=== PATIENT | female | born 1970 | race Caucasian/White ===

== ENCOUNTER 2018-06-29 10:29 | Emergency (ER) | payer OTHER, MEDICAID ==
[~2018-06-29] VITALS: Ht 160 cm; Wt 75.8 kg
[~2018-06-29 10:29] MED LIST: NORCO 5-325 TA1 EACH PO; VICODIN 5-5001 EACH
[2018-06-29] MEDS ORDERED: HYDROCODONE/IBUPROFE (10:39)
[2018-06-29 11:02] LABS: ABSOLUTE BASOPHILS 0.1 thou/uL (0.0-0.2); ABSOLUTE EOSINOPHILS 0.2 thou/uL (0.0-0.7); ABSOLUTE LYMPHOCYTES 1.8 thou/uL (0.8-5.3); ABSOLUTE MONOCYTES 0.4 thou/uL (0.0-1.2); ABSOLUTE NEUTROPHILS 2.9 thou/uL (1.6-8.1); BASOPHILS 1.1 %; EOSINOPHILS 3.4 %; LYMPHOCYTES 33.9 %; MCH 32.6 pg (26.0-34.0); MCHC 34.1 g/dL (28.0-37.0); MCV 95.6 fL (80.0-100.0); MONOCYTES 7.3 %; MPV 9.1 fl. (7.2-11.1); NUCLEATED RBCS 0 /100WBC; PLATELET COUNT* 179 thou/uL (150-400); POLYS 54.3 %; RBC 4.29 mil/uL (4.20-5.00); RDW-CV 12.4 % (10.5-14.5); WBC 5.4 thou/uL (4.0-11.0)
[2018-06-29 11:09] LABS: ANION GAP 12 mmol/L (7-16); BUN 16 mg/dL (7-18); CALCIUM 9.1 mg/dL (8.5-10.1); CHLORIDE 104 mmol/L (98-107); CO2 24 mmol/L (21-32); CREATININE 0.9 mg/dL (0.6-1.3); GLUCOSE 106 mg/dL (70-99); POTASSIUM 3.9 mmol/L (3.5-5.1); SODIUM 140 mmol/L (136-145)
[2018-06-29 11:15] LABS: ALBUMIN 4.3 g/dL (3.4-5.0); ALKALINE PHOSPHATASE 48 U/L (46-116); LIPASE 131 U/L (73-393); SGOT 27 U/L (15-37); SGPT 50 U/L (30-65); TOTAL BILIRUBIN 0.3 mg/dL (<0.1-1.0); TOTAL PROTEIN 7.4 g/dL (6.4-8.2); TROPONIN-I LEVEL <0.06 ng/mL (<0.06)
[2018-06-29 11:47] LABS: URINE BILIRUBIN NEGATIVE (Negative); URINE BLOOD NEGATIVE (Negative); URINE CLARITY CLEAR; URINE COLOR YELLOW; URINE GLUCOSE-RANDOM NEGATIVE (Negative); URINE KETONES NEGATIVE (Negative); URINE LEUKOCYTES-REFLEX NEGATIVE (Negative); URINE NITRITE-REFLEX NEGATIVE (Negative); URINE PROTEIN NEGATIVE (Negative); URINE UROBILINOGEN 0.2 E.U./dl (0.2-1.0)
[2018-06-29] MEDS ORDERED: NORCO 5-325 TA1 EACH PO (12:58)
[2018-06-29] MEDS ORDERED: NABUMETONE 750750 M1 PO (12:58)
[2018-06-29 13:23] VITALS: BP 133/93
--- NOTE | 2018-06-30 18:03 | EKG ---
[place] [address] ELECTROCARDIOGRAM REPORT Name: VON ALMONTE Room: [facility]#: [id number] Admission: 06/29/18 Attend Phys: Discharge: 06/29/18 Date of : 70 Report #: [id number] THIS REPORT FOR: //name// [facility] ED Test Date: 2018-06-29 Test Time: 10:37:52 Pat Name: VON ALMONTE Department: Room: Gender: F Computer Numerical Control Machinist: Renetta CHA : 1970 Requested By: Raquel Tate Order Number: [id number] MD: Raghavendra Connor Measurements Intervals [place] Rate: 82 P: 56 CA: 141 QRS: 31 QRSD: 87 T: 41 QT: 400 QTc: 468 Interpretive Statements Sinus rhythm Compared to ECG 06/11/2015 22:45:59 Atrial premature complex(es) no longer present Electronically Signed On 06-30-2018 18:03:01 [employer] by Raghavendra Connor [email or web address] <ELECTRONICALLY SIGNED> By: Raghavendra Connor MD, [facility] 06/30/18 1803 [facility] 1037 Raghavendra Connor MD, FACC /EPI
== END 2018-06-29 13:23 | disposition home or self-care (01) ==
LOC: M.ERS 10:29
PROVIDERS: Nurse Practitioner Family
DX: R07.89 Other chest pain (principal); M79.652 Pain in left thigh; R10.31 Right lower quadrant pain; Z98.890 Other specified postprocedural states; Z87.891 Personal history of nicotine dependence

== ENCOUNTER 2021-05-12 22:17 | Emergency (ER) | payer OTHER ==
[~2021-05-12] VITALS: Ht 160 cm; Wt 71.2 kg
[~2021-05-12 22:17] MED LIST changes: +HYDROCODONE/IBUPROFE; +NABUMETONE 750750 M1 PO
[2021-05-12] MEDS ORDERED: VICOPROFEN (22:30)
[2021-05-12] MEDS ORDERED: HYDROCODON-ACE1 EAC8 PO (23:06)
[2021-05-12 23:23] VITALS: BP 148/79
== END 2021-05-12 23:23 | disposition home or self-care (01) ==
LOC: M.ERS 22:17
DX: S82.62XA Displaced fracture of lateral malleolus of left fibula, initial encounter for closed fracture (principal); Z98.890 Other specified postprocedural states; Z79.899 Other long term (current) drug therapy; Z87.891 Personal history of nicotine dependence; X50.1XXA Overexertion from prolonged static or awkward postures, initial encounter; Y93.89 Activity, other specified; Y92.89 Other specified places as the place of occurrence of the external cause; Y99.8 Other external cause status